=== PATIENT | female | born 1990 | race Caucasian/White ===

== ENCOUNTER 2023-03-07 18:06 | Day surgery (SDC) | payer BC ==
[2023-03-07 18:34] VITALS: BMI 36.0
[2023-03-07] MEDS ORDERED: hydrALAZINE 20 MG/ML VIAL SLOW IVP PRN (18:57)
[2023-03-07 19:34] LABS: Hematocrit 36.4 % (34.9-44.5); Hemoglobin 12.1 g/dL (12.0-15.5); Mean Corpuscular HGB CONC 33.2 g/dL (32.0-36.0); Mean Corpuscular Hemoglobin 28.1 pg (27.0-33.0); Mean Corpuscular Volume 84.7 fl (81.6-98.3); Mean Platelet Volume 11.5 fl (7.4-10.4); Platelet Count 210 10x3/uL (150-450); RBC Distribution Width 15.9 % (11.5-14.5)
[2023-03-07 19:46] LABS: ALT (SGPT) 12 U/L (8-55); AST (SGOT) 12 U/L (5-34); Albumin 3.4 g/dL (3.5-5.0); Alkaline Phosphatase 83 U/L (40-110); Anion Gap 13 mmol/L (10-20); BUN (Urea Nitrogen) 6 mg/dL (7.0-18.7); Bilirubin, Total 0.3 mg/dL (0.2-1.2); Calc. Creatinine Clearance 222 mL/min (70-130); Calcium 8.7 mg/dL (7.8-10.44); Carbon Dioxide 19 mmol/L (22-29); Chloride 107 mmol/L (98-107); Estimated GFR 123; Glucose 96 mg/dL (70-105); Potassium 3.9 mmol/L (3.5-5.1); Protein, Total 6.4 g/dL (6.0-8.3); Sodium 135 mmol/L (136-145)
[2023-03-07 19:46] LABS: Creatinine, Urine 94.18 mg/dL (47-110)
== END 2023-03-07 21:10 | disposition home or self-care (01) ==
LOC: CSHLD/OP 18:06
PROVIDERS: ATTEND Obstetrics & Gynecology
DX: O47.1 False labor at or after 37 completed weeks of gestation (principal); O34.211 Maternal care for low transverse scar from previous cesarean delivery; Z3A.38 38 weeks gestation of pregnancy; Z79.82 Long term (current) use of aspirin; Z79.899 Other long term (current) drug therapy
CPT/HCPCS: 36415; 76819; 80053; 82570; 84156; 85027; 99283

== ENCOUNTER 2023-03-14 05:24 | Inpatient (IN) | payer BC ==
[2023-03-13 10:12] LABS: Hemoglobin 12.9 g/dL (12.0-15.5); Platelet Count 198 10x3/uL (150-450)
[2023-03-13 10:47] LABS: Syphilis Antibody Nonreactive (Nonreactive); Syphilis Antibody Index 0.18 S/CO (<1.00 Non-Reactive)
[2023-03-13 10:48] LABS: HBSAg Index 0.17 S/CO (0-0.99); Hep B Surf Ag Non-Reactive S/CO (NonReactive)
[2023-03-14 06:07] VITALS: BMI 35.9
[2023-03-14] MEDS ORDERED: Misoprostol 200 MCG TAB PR PRN ×2 (06:08→11:38)
[2023-03-14] MEDS ORDERED: CEFAZOLIN 2 GM in Sodium Chloride 0.9% 100 ML IVPB SCH (06:08)
[2023-03-14] MEDS ORDERED: Promethazine HCl 25 MG/ML VIAL IM PRN ×2 (06:08→07:11)
[2023-03-14] MEDS ORDERED: hydrALAZINE 20 MG/ML VIAL SLOW IVP PRN ×2 (06:08→11:38)
[2023-03-14] MEDS ORDERED: Carboprost 250 MCG/ML AMP IM PRN (06:08)
[2023-03-14] MEDS ORDERED: Ondansetron PF 4 MG/2 ML Vial IVP PRN ×4 (06:08→11:38)
[2023-03-14] MEDS ORDERED: Methylergonovine 0.2 MG/ML VIAL IM PRN ×2 (06:08→11:38)
[2023-03-14] MEDS ORDERED: Bicitra 30 ML UDCUP PO PRN (06:08)
[2023-03-14] MEDS ORDERED: Diphenoxylate HCl/Atropine Tablet PO PRN ×2 (06:08)
[2023-03-14] MEDS ORDERED: Famotidine/PF 20 mg/2ml Vial SLOW IVP PRN (06:08)
[2023-03-14] MEDS ORDERED: Oxytocin 30 units/NS 500 ML 500 ML IV SCH ×2 (06:15→11:38)
[2023-03-14] MEDS ORDERED: Lactated Ringer's 1,000 ML IV SCH (06:15)
[2023-03-14] MEDS ORDERED: Ketorolac Tromethamine 30 MG (1 mL) VIAL ONE (07:01)
[2023-03-14] MEDS ORDERED: Dexamethasone 4 mg/ml Vial ONE (07:01)
[2023-03-14] MEDS ORDERED: ePHEDrine Sulfate 50 MG/10 ML VIAL ONE (07:01)
[2023-03-14] MEDS ORDERED: Oxytocin 10 UNITS/ML VIAL ONE (07:01)
[2023-03-14] MEDS ORDERED: Glycopyrrolate 0.2 MG/ML 5 ML SYRINGE ONE (07:01)
[2023-03-14] MEDS ORDERED: Ondansetron PF 4 MG/2 ML Vial ONE (07:01)
[2023-03-14] MEDS ORDERED: PHENYLEPHRINE-NS 100 MCG/ML 10 ML SYRINGE ONE (07:01)
[2023-03-14] MEDS ORDERED: Phenylephrine 40 MG/NS 250 ML 250 ML ONE (07:01)
[2023-03-14] MEDS ORDERED: Meperidine HCl/PF 25 MG (1 mL) VIAL SLOW IVP PRN (07:11)
[2023-03-14] MEDS ORDERED: Promethazine HCl 25 MG SUPP PR PRN (07:11)
[2023-03-14] MEDS ORDERED: Naloxone HCl 0.4 mg/ml Vial IVP PRN ×2 (07:11)
[2023-03-14] MEDS ORDERED: fentaNYL 50 mcg/mL 1 mL Vial SLOW IVP PRN (07:11)
[2023-03-14] MEDS ORDERED: Moisturizing Cream (Eucerin) 113 GM JAR TOP PRN (07:11)
[2023-03-14] MEDS ORDERED: Naloxone HCl 0.4 mg/ml Vial IV PRN (07:11)
[2023-03-14] MEDS ORDERED: diphenhydrAMINE 50 MG/ML VIAL IVP PRN (07:11)
[2023-03-14] MEDS ORDERED: Communication Order-Pharmacy FS SCH (07:15)
[2023-03-14] MEDS ORDERED: Erythromycin Base 0.5% Oint 1 GM TUBE ONE (07:16)
[2023-03-14] MEDS ORDERED: Hepatitis B Vaccine 10 MCG/0.5 ML SYR ONE (07:16)
[2023-03-14] MEDS ORDERED: Phytonadione Neonatal 1 MG/0.5 ML AMP ONE (07:16)
[2023-03-14] MEDS ORDERED: Ketorolac Tromethamine 30 MG (1 mL) VIAL IVP SCH (07:45)
[2023-03-14] MEDS ORDERED: Boostrix 0.5 ML (Tdap) VIAL (>/=7 yrs of age) IM ONE (11:38)
[2023-03-14] MEDS ORDERED: Lanolin Ointment 7 GM TUBE TOP PRN (11:38)
[2023-03-14] MEDS: Ketorolac Tromethamine 30 MG (1 mL) VIAL IVP PRN ×2 (14:05→19:53)
[2023-03-14] MEDS: Acetaminophen 500 MG TAB PO SCH ×2 (14:06→22:23)
[2023-03-14] MEDS ORDERED: Morphine 2 MG/ML VIAL SLOW IVP PRN (17:25)
[2023-03-14] MEDS: Simethicone Chewable 80 MG TAB PO PRN ×2 (17:42→22:45)
[2023-03-14] MEDS: HYDROcodone/Acetaminophen 5/325 mg Tablet PO PRN (19:52)
[2023-03-14] MEDS: Ferrous Sulfate 325 MG TAB PO SCH (21:57)
[2023-03-14] MEDS: Docusate 100 MG CAP PO SCH (22:23)
[2023-03-15] MEDS: HYDROcodone/Acetaminophen 5/325 mg Tablet PO PRN ×3 (01:07→21:09)
[2023-03-15] MEDS: Ketorolac Tromethamine 30 MG (1 mL) VIAL IVP PRN (02:03)
[2023-03-15 04:13] LABS: Hematocrit 31.8 % (34.9-44.5); Hemoglobin 10.8 g/dL (12.0-15.5); Mean Corpuscular Hemoglobin 29.2 pg (27.0-33.0); Mean Corpuscular Volume 85.9 fl (81.6-98.3); Mean Platelet Volume 11.7 fl (7.4-10.4); Platelet Count 173 10x3/uL (150-450); RBC Distribution Width 15.9 % (11.5-14.5); White Blood Cell (WBC) Count 9.7 10x3/uL (3.5-10.5)
[2023-03-15] MEDS: Acetaminophen 500 MG TAB PO SCH ×3 (06:48→22:36)
[2023-03-15] MEDS: Prenatal Vitamin 1 TAB PO SCH (08:31)
[2023-03-15] MEDS: Docusate 100 MG CAP PO SCH ×2 (08:31→21:09)
[2023-03-15] MEDS: Ferrous Sulfate 325 MG TAB PO SCH (08:44)
[2023-03-15] MEDS: Ibuprofen 800 MG TAB PO SCH ×2 (14:28→22:36)
[2023-03-16] MEDS: Acetaminophen 500 MG TAB PO SCH (06:12)
[2023-03-16] MEDS: Ibuprofen 800 MG TAB PO SCH (06:13)
[2023-03-16] MEDS: Ferrous Sulfate 325 MG TAB PO SCH ×2 (07:30→07:47)
[2023-03-16] MEDS: Prenatal Vitamin 1 TAB PO SCH (07:48)
[2023-03-16] MEDS: Docusate 100 MG CAP PO SCH (07:48)
[2023-03-16 11:36] VITALS: BP 131/75; TEMP 98.5
== END 2023-03-16 12:35 | disposition home or self-care (01) | DRG 788 ==
LOC: CSHLD 05:24 → CSHPED 11:45
PROVIDERS: ADMIT Obstetrics & Gynecology; ATTEND Obstetrics & Gynecology
PROC: 10D00Z1 Extraction of Products of Conception, Low, Open Approach (ICD-10-PCS; principal; 2023-03-14)
PROC: 0UNF0ZZ Release Cul-de-sac, Open Approach (ICD-10-PCS; 2023-03-14)
DX: O34.211 Maternal care for low transverse scar from previous cesarean delivery (principal); O99.02 Anemia complicating childbirth; D64.9 Anemia, unspecified; Z3A.39 39 weeks gestation of pregnancy; Z37.0 Single live birth; O99.892 Other specified diseases and conditions complicating childbirth; N73.6 Female pelvic peritoneal adhesions (postinfective)
CPT/HCPCS: 36415; 85014; 85018; 85027; 85049; 86780; 86850; 86900; 86901; 87340; J1100; J1885; J2272; J2405; J2590; J3010; J3490; J7120; S0028